=== PATIENT | male | born 1975 | race Caucasian/White ===

== ENCOUNTER 2017-08-29 11:33 | Outpatient (CLI) | payer MEDICAID ==
--- NOTE | 2017-08-29 12:52 | XRAY Report ---
THREE VIEW LEFT THIRD TOE: 08/29/2017 CLINICAL INDICATION: Pain. FINDINGS: AP, lateral, oblique views of the left third toe demonstrate a mildly displaced fracture of the proximal phalanx, without evidence of intraarticular extension. No other fracture is seen. No foreign body is seen in the soft tissues. IMPRESSION: MILDLY DISPLACED FRACTURE OF THE PROXIMAL PHALANX OF THE LEFT THIRD TOE. TD: 08/29/2017 12:50
== END 2017-08-29 11:34 | disposition home or self-care (01) ==
LOC: DI.S 11:33
PROVIDERS: ATTEND Nurse Practitioner Family
DX: S92.522A Displaced fracture of middle phalanx of left lesser toe(s), initial encounter for closed fracture (principal)
CPT/HCPCS: 73660

== ENCOUNTER 2017-09-13 12:04 | Outpatient (CLI) | payer MEDICAID | END 2017-09-13 12:05 | disposition home or self-care (01) | LOC: RT.S 12:04 | PROVIDERS: ATTEND Nurse Practitioner Family | DX: I49.9 Cardiac arrhythmia, unspecified (principal) | CPT/HCPCS: 93005 ==

== ENCOUNTER 2017-09-19 08:23 | Outpatient (CLI) | payer MEDICAID ==
[2017-09-19 17:53] LABS: BASOPHILS % (AUTO) 0.5 %; EOSINOPHILS # (AUTO) 0.2 10^3/uL (0.0-0.7); EOSINOPHILS % (AUTO) 2.3 %; HGB - HEMOGLOBIN 15.3 g/dL (14.0-18.0); LYMPHOCYTES # (AUTO) 2.2 10^3/uL (1.5-3.5); MEAN CORPUSCULAR HEMOGLOBIN 29.9 pg (27.0-31.0); MEAN CORPUSCULAR HGB CONC 32.8 g/dL (32.0-36.0); MEAN CORPUSCULAR VOLUME 91.2 fL (80.0-94.0); MEAN PLATELET VOLUME 7.4 fL (7.4-11.4); MONOCYTES # (AUTO) 0.7 10^3/uL (0.0-1.0); MONOCYTES % (AUTO) 7.6 %; NEUTROPHILS # (AUTO) 6.1 10^3/uL (1.5-6.6); NEUTROPHILS % (AUTO) 65.6 %; PLT - PLATELET COUNT 287 10^3/uL (130-450); RED BLOOD COUNT 5.11 10^6/uL (4.70-6.10); RED CELL DISTRIBUTION WIDTH 12.8 % (12.0-15.0); WHITE BLOOD COUNT 9.3 x10^3/uL (4.8-10.8)
[2017-09-19 19:01] LABS: ALBUMIN 4.6 g/dL (3.2-5.5); ALBUMIN/GLOBULIN RATIO 1.8 (1.0-2.2); ALKALINE PHOSPHATASE 46 IU/L (42-121); ALT ALANINE AMINOTRANSFERASE 21 IU/L (10-60); AST ASPARTATE AMINOTRANSFERASE 18 IU/L (10-42); BILIRUBIN,TOTAL 0.4 mg/dL (0.2-1.0); BUN - BLOOD UREA NITROGEN 13 mg/dL (6-20); CALCIUM 9.4 mg/dL (8.5-10.3); CARBON DIOXIDE - CO2 29 mmol/L (21-32); CHLORIDE 99 mmol/L (101-111); CHOL/HDL RATIO 7.8 (<5.0); CHOLESTEROL 257 mg/dL; CREATININE 0.8 mg/dL (0.6-1.2); GFR - MDRD 106 (>89); GLUCOSE 107 mg/dL (70-100); HDL CHOLESTEROL 33 mg/dL; LDL CHOLESTEROL,CALCULATED 147 mg/dL; LDL/HDL RATIO 4.5 (<3.6); SODIUM 135 mmol/L (135-145); TOTAL PROTEIN 7.2 g/dL (6.7-8.2); VLDL CHOLESTEROL 77 mg/dL
== END 2017-09-19 08:24 | disposition home or self-care (01) ==
LOC: LAB.S 08:23
PROVIDERS: ATTEND Nurse Practitioner Family
DX: R53.83 Other fatigue (principal); Z13.1 Encounter for screening for diabetes mellitus
CPT/HCPCS: 36415; 80050; 80061; 83721

== ENCOUNTER 2017-12-30 08:05 | Outpatient (CLI) | payer MEDICAID ==
[2017-12-30 13:19] LABS: GLUCOSE,FASTING 117 mg/dL (70-100)
== END 2017-12-30 08:06 | disposition home or self-care (01) ==
LOC: LAB.F 08:05
PROVIDERS: ATTEND Nurse Practitioner Family
DX: E78.1 Pure hyperglyceridemia (principal); R73.01 Impaired fasting glucose
CPT/HCPCS: 36415; 82947; 84478

== ENCOUNTER 2018-07-27 14:03 | Outpatient (CLI) | payer MEDICAID ==
--- NOTE | 2018-07-28 08:22 | MRI Report ---
Reason: KNEE PAIN,RIGHT,ACUTE Procedure Date: 07/27/2018 Accession Number: [id number] / [id number] Procedure: MRI - Knee RT W/O CPT Code: FULL RESULT: EXAM: RIGHT KNEE MRI WITHOUT CONTRAST EXAM DATE: 07/27/2018 01:50 PM. CLINICAL HISTORY: Knee pain, right, acute. COMPARISON: KNEE 3 VIEW RT 07/20/2018 10:07 AM. TECHNIQUE: Multiplanar, multisequence T1-weighted and fluid-sensitive sequences of the knee without contrast. Other: None. FINDINGS: Cruciate ligaments: The anterior and posterior cruciate ligaments appear intact. Medial meniscus: Complex horizontal tear at the body with intrasubstance degeneration. Long flap fragment at the root of the posterior horn superiorly. Lateral meniscus: Intrasubstance degeneration at the root of the anterior horn. No tear identified. Collateral ligaments: The medial and fibular collateral ligaments appear intact. Bones and articular surfaces: Slight cartilage thinning in the periphery of the medial compartment with subchondral marrow edema. Lateral and patellofemoral compartments demonstrate no significant articular cartilage defect. Small joint effusion. Extensor mechanism: The patellar tendon and quadriceps insertion appear intact. Thickened medial plica without significant patellar chondromalacia. IMPRESSION: 1. Medial meniscus tears including horizontal tear at the body and long flap tear extending superiorly from the root of the posterior horn in the posterior joint midline. 2. Mild medial compartment osteoarthritis. 3. Small joint effusion. [facility]
== END 2018-07-27 14:04 | disposition home or self-care (01) ==
LOC: DI 14:03
PROVIDERS: ATTEND Orthopaedic Surgery Sports Medicine
DX: S83.241A Other tear of medial meniscus, current injury, right knee, initial encounter (principal); M17.11 Unilateral primary osteoarthritis, right knee; M25.461 Effusion, right knee

== ENCOUNTER 2020-05-19 07:15 | Outpatient (CLI) | payer BC | END 2020-05-19 07:16 | disposition home or self-care (01) | LOC: LAB.S 07:15 | PROVIDERS: ATTEND Registered Nurse | DX: N45.1 Epididymitis (principal) | CPT/HCPCS: 36415; 86140; 87086; 87491; 87591; 87661 ==